=== PATIENT | female | born 1955 | race Caucasian/White ===

== ENCOUNTER 2017-05-22 06:01 | Day surgery (SDC) | payer BC ==
[~2017-05-22 06:01] MED LIST: Buffered Lidocaine 0.9% SYRIN* 5 ML/SYR SYRINGE INTRADERM ONE; Sodium Citrate/Citric Acid* 15 ML UDC PO ONE
[2017-05-22] MEDS ORDERED: Sodium Citrate/Citric Acid* 15 ML UDC ONE (06:10)
[2017-05-22] MEDS ORDERED: ceFAZolin 2 GM PREMIX (*) 2 GM/50 ML BAG IVPB ONE (06:10)
[2017-05-22] MEDS ORDERED: Buffered Lidocaine 0.9% SYRIN* 5 ML/SYR SYRINGE ONE (06:10)
[2017-05-22] MEDS ORDERED: Ferric Subsulfate* 8 ML BTL ONE (07:22)
[2017-05-22] MEDS ORDERED: Acetic Acid 0.25%* 250 ML BTL ONE (07:22)
[2017-05-22] MEDS ORDERED: VASOPRESSIN 20 UNITS/ML 1 ML VIAL ONE (07:22)
[2017-05-22] MEDS ORDERED: Iodine Strong (LUGOL'S)* 14 ML BTL ONE (07:22)
[2017-05-22] MEDS ORDERED: fentaNYL* 50 MCG/ML 2 ML VIAL (100 MCG VIAL) ONE (07:37)
[2017-05-22] MEDS ORDERED: Lidocaine 2% PF * 5 ML VIAL ONE (07:37)
[2017-05-22] MEDS ORDERED: Propofol* 10 MG/ML 20 ML BTL IV PUSH ONE (07:37)
[2017-05-22] MEDS ORDERED: Midazolam* 1 MG/ML 2 ML VIAL (2 MG) ONE (07:37)
[2017-05-22] MEDS ORDERED: Ketorolac INJ* 30 MG/ML 1 ML VIAL IV PRN (07:48)
[2017-05-22] MEDS ORDERED: fentaNYL* 50 MCG/ML 2 ML VIAL (100 MCG VIAL) IV PRN (07:48)
[2017-05-22] MEDS ORDERED: Ondansetron INJ* 2 MG/ML VIAL IV PRN (07:48)
[2017-05-22] MEDS ORDERED: Lidocaine 1% INJ* 10 MG/ML 30 ML SDV ONE (07:55)
[2017-05-22 08:28] LABS: Hematocrit 45 % (35-47); Hemoglobin 15.3 g/dl (12.0-16.0); Mean Corpuscular HGB Conc 34 g/dl (31-36); Mean Corpuscular Hemoglobin 33 pg (27-31); Mean Corpuscular Volume 97 fL (80-97); Mean Platelet Volume 9 um3 (7.4-10.4); Red Blood Count 4.66 10^6/ul (4.0-5.4); Red Cell Distribution Width 13 % (10.5-15); White Blood Count 5.1 10^3/ul (3.5-10.8)
[2017-05-22] MEDS ORDERED: oxyCODONE/Acetamin 5/325 MG* TAB PO PRN (08:37)
[2017-05-22 09:01] VITALS: BP 130/70
--- NOTE | 2017-05-22 10:59 | OP ---
DATE OF OPERATION: 05/22/2017. DATE OF : 1955. SURGEON: Dr. Justin Morris. ANESTHESIOLOGIST: Dr. Dimas Enriquez. ANESTHESIA: General endotracheal anesthesia. 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 OPERATIVE PROCEDURE: Colposcopy, Luna cone biopsy. ESTIMATED BLOOD LOSS: Minimal, less than 20 cc. FINDINGS: Midline cervix with acetowhite changes surrounding the endocervix, most prominent at between 4 and 5 o'clock. Atrophic changes to the vagina and cervix. COMPLICATIONS: None. COUNTS: Sponge, lap and needle count were correct times two. CONDITION: The patient was brought to the recovery room awake and in stable condition. DESCRIPTION OF PROCEDURE: The patient was brought to the operating room. When general anesthesia was found to be adequate, the patient was prepped and draped in the usual sterile fashion in the dorsal lithotomy position. No vaginal prep was performed because we were doing a colposcopy. Colposcopy was then performed with the above findings noted. The Luna cone, size medium extended was used. The initial specimen was removed in two pieces. One was from 12 o'clock to 3 o'clock, specimen number two was from 3 o'clock to 12 o' clock. Specimen number three was a deeper version of the cone, also came in two pieces from approximately 12 to 6 and then 6 to 12, that went as one specimen called deeper cone. Lastly, specimen number four was endocervical curettage. Hemostasis was easily achieved with roller ball, cautery, and Monsels application. All instruments were removed from the vagina. Excellent hemostasis was noted and the patient was brought to the recovery room awake and in stable condition. [id number] #: [id number] MTDD
== END 2017-05-22 09:36 | disposition home or self-care (01) ==
LOC: OR 06:01
PROVIDERS: ATTEND Obstetrics & Gynecology
DX: N87.0 Mild cervical dysplasia (principal); R87.810 Cervical high risk human papillomavirus (HPV) DNA test positive
CPT/HCPCS: 36415; 85025; 88305; 88307; 88341; 88342; A9270-GY; J0690; J2250; J2704; J3010

== ENCOUNTER 2019-09-17 07:24 | Day surgery (SDC) | payer BC ==
--- NOTE | 2019-09-08 10:01 | HP ---
PREOPERATIVE HISTORY AND PHYSICAL: DATE OF ADMISSION/SURGERY: 09/17/19 DATE OF OFFICE VISIT/ENCOUNTER: 09/06/19 ATTENDING SURGEON: Do Maldonado MD * (DICTATED BY RACHEL MCNEAL) PROCEDURE: Trigger finger release, right ring finger. HISTORY OF PRESENT ILLNESS: This is a 63-year-old female who has had ongoing problems with triggering in her right ring finger for a couple of years now. She has received cortisone injection in the past, which was helpful, however, the symptoms have returned and are more significant at this point. She is now getting actual locking of the finger in a flexed position and it is quite painful for her to try to return it to an extended position. She is interested in surgical position intervention at this time. PAST MEDICAL HISTORY: Osteoporosis. PAST SURGICAL HISTORY: 1. . 2. Tonsillectomy. CURRENT MEDICATIONS: 1. Calcium 600 plus vitamin D 2 tabs b.i.d. 2. Multivitamin 1 tab daily. ALLERGIES: MORPHINE causes nausea and vomiting. FAMILY MEDICAL HISTORY: Breast cancer and lung cancer. 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 She denies tobacco use and recreational drug use. She drinks alcohol on occasion. REVIEW OF SYSTEMS: Negative for general, cephalic, cardiovascular, respiratory , GI, ,other musculoskeletal, integumentary, endocrine, neurologic, and hematologic symptoms. Infectious Disease: Negative for MRSA, hepatitis C, HIV. PHYSICAL EXAMINATION GENERAL: A well-developed, well-nourished 63-year-old female, in no acute distress. VITAL SIGNS: Height 5 feet 7.5 inches, weight 160 pounds. Pulse rate 58, blood pressure 134/82. HEENT: Normocephalic, atraumatic. Pupils are equal, round, and reactive to light and accommodation. Extraocular movements are intact. NECK: Supple. No palpable lymph nodes. Throat is clear. PULMONARY: Lungs are clear to auscultation bilaterally. No wheezes, rales, or rhonchi. CARDIOVASCULAR: Regular rate and rhythm. S1, S2. No murmurs, rubs, or gallops. No edema. ABDOMEN: Positive bowel sounds. Soft, nontender. MUSCULOSKELETAL: On exam of the right hand, she has some mild swelling of the ring finger when compared to the other finger. Tenderness to palpation of the A1 christ. When she fully flexes the finger, it gets locked in a flexed position and she has to passively extend the finger and this was quite painful. Skin is intact. NEUROLOGICAL: Alert and oriented x3. Cranial nerves II through XII are intact. Sensation is intact to light touch. Neurovascular function is intact. IMPRESSION: Right ring finger trigger finger. PLAN: The patient is scheduled to undergo a trigger finger release right ring finger with Dr. Maldonado on 09/17/19. She will return to the office 10 days postop for followup and suture removal. A prescription for tramadol was e- scribed to the patient's pharmacy for postoperative pain management. RACHEL MCNEAL [id number] #: [id number] MTDInna
[~2019-09-17 07:24] MED LIST changes: +Acetaminophen TAB* 325 MG ONE; +Acetaminophen TAB* 325 MG PO ONE; -Buffered Lidocaine 0.9% SYRIN* 5 ML/SYR SYRINGE INTRADERM ONE; +Buffered Lidocaine 1% SYRIN* 1 ML/SYRINGE INTRADERM ONE; +Famotidine IV* 10 MG/ML 2 ML (20 mg) IV ONE; +Famotidine IV* 10 MG/ML 2 ML (20 mg) ONE; +Lactated Ringers 1000 ML Bag* 1,000 ML IV SCH; -Sodium Citrate/Citric Acid* 15 ML UDC PO ONE
[2019-09-17] MEDS ORDERED: Acetaminophen TAB* 325 MG ONE (07:46)
[2019-09-17] MEDS ORDERED: fentaNYL* 50 MCG/ML 2 ML VIAL (100 MCG VIAL) ONE (08:09)
[2019-09-17] MEDS ORDERED: Midazolam* 1 MG/ML 2 ML VIAL (2 MG) ONE (08:09)
[2019-09-17] MEDS ORDERED: DiMENhydriNATE IV* 50 MG/ML VIAL IV PUSH PRN (08:11)
[2019-09-17] MEDS ORDERED: fentaNYL* 50 MCG/ML 2 ML VIAL (100 MCG VIAL) IV PRN (08:11)
[2019-09-17] MEDS ORDERED: Ondansetron INJ* 2 MG/ML VIAL IV PRN (08:11)
[2019-09-17] MEDS ORDERED: diPHENhydraMINE IV* 50 MG/ML 1 ml VIAL (BENADRYL) IV PRN (08:11)
[2019-09-17] MEDS ORDERED: Naloxone* 0.4 MG/ML 1 ML VIAL IV PRN (08:11)
[2019-09-17] MEDS ORDERED: Lidocaine 1% INJ* 10 MG/ML 30 ML SDV ONE (08:34)
[2019-09-17] MEDS ORDERED: Lidocaine 2% PF * 5 ML VIAL ONE (08:38)
[2019-09-17] MEDS ORDERED: Propofol* 10 MG/ML 20 ML BTL ONE (08:38)
[2019-09-17] MEDS ORDERED: Dexamethasone IV* 4 MG/ML 1 ML (4 MG) ONE (08:38)
[2019-09-17] MEDS ORDERED: Ketorolac INJ* 30 MG/ML 1 ML VIAL ONE (08:38)
[2019-09-17 09:42] VITALS: BP 112/68
--- NOTE | 2019-09-17 22:22 | OP ---
DATE OF OPERATION: 09/17/19 [facility] DATE OF : 53 SURGEON: Do Maldonado MD. ORTHOPEDIC SHOES SALESPERSON: RACHEL Santos. ANESTHESIA: Local MAC. PRE-OP DIAGNOSIS: Right ring finger trigger finger. POST-OP DIAGNOSIS: Right ring finger trigger finger. OPERATIVE PROCEDURE: Right ring finger trigger release. ESTIMATED BLOOD LOSS: Zero. TOURNIQUET TIME: About 10 minutes. INDICATIONS FOR PROCEDURE: Tonya is a 63-year-old woman who has painful triggering of her right ring finger. She presents for trigger finger release. DESCRIPTION OF PROCEDURE: The patient was brought to the operative room, was given a sedation anesthetic and a local infiltration with 10 cc of 1% plain lidocaine in the palm of her right hand. Skin of her right hand and forearm was prepped and draped in the usual sterile fashion. The hand and forearm were exsanguinated and the tourniquet elevated to 250 mmHg. A transverse incision was made, centered over the A1 christ of the right ring finger. We dissected through the subcutaneous tissue down to the A1 christ, which was incised longitudinally completely releasing the flexor tendons. There was a significant abrasion of the flexor tendons from the recurrent triggering but the tendon was intact. The wound was irrigated and the skin edges reapproximated with a 4-0 nylon suture. The wound was dressed with Xeroform, 4x4, Webril, and an Ulises wrap. The patient tolerated the procedure well and was brought to the recovery room in good condition. [id number]/CPS #: [id number] MTDD
== END 2019-09-17 09:50 | disposition home or self-care (01) ==
LOC: OREAST 07:24
PROVIDERS: ATTEND Orthopaedic Surgery
DX: M65.341 Trigger finger, right ring finger (principal)
CPT/HCPCS: A9270-GY; J1100; J1885; J2250; J2704; J3010